=== PATIENT | female | born 1975 | race Caucasian/White ===

== ENCOUNTER 2022-08-17 06:15 | Emergency (ER) | payer SELFPAY ==
[~2022-08-17] VITALS: Ht 167.6 cm; Wt 62.5 kg
[2022-08-17 06:26] VITALS: BP 98/56
[2022-08-17] MEDS ORDERED: ACETAMINOPHEN 325MG TABLET PO PRN (06:45)
[2022-08-17 07:27] LABS: CLARITY URINE CLOUDY (CLEAR); COLOR URINE YELLOW (YELLOW); KETONES URINE TRACE (NEGATIVE); LEUKOCYTE ESTERASE URINE 3+ (NEGATIVE); NITRITE URINE NEGATIVE (NEGATIVE); OCCULT BLOOD URINE 2+ (NEGATIVE); PH URINE 6.5 (4.5-8.0); PROTEIN URINE 1+ (NEGATIVE); UROBILINOGEN URINE 0.2 E.U./dL (0.2-1.0)
[2022-08-17 08:00] LABS: *AMPHETAMINES SCREEN URINE NEGATIVE (NEGATIVE); *BARBITURATES SCREEN URINE NEGATIVE (NEGATIVE); *BENZODIAZEPINES SCREEN URINE NEGATIVE (NEGATIVE); *COCAINE SCREEN URINE NEGATIVE (NEGATIVE); CANNABINOID URINE SCREEN NEGATIVE (NEGATIVE); METHADONE URINE SCREEN NEGATIVE (NEGATIVE); OPIATES URINE SCREEN NEGATIVE (NEGATIVE); PHENCYCLIDINE URINE SCREEN NEGATIVE (NEGATIVE)
[2022-08-17 12:08] LABS: BASOPHILS % 0.1 % (0.0-2.0); EOSINOPHILS % 0.6 % (0.0-5.0); HEMATOCRIT. 34.4 % (36.0-48.0); HEMOGLOBIN. 11.4 g/dL (12.0-16.0); LYMPHOCYTES % 8.4 % (20.0-50.0); MEAN CORPUSCULAR HEMOGLOBIN 30.3 pg (28.0-32.0); MEAN CORPUSCULAR VOLUME 91.6 fL (81.0-99.0); MEAN PLATELET VOLUME 7.3 fl (7.4-10.4); NEUTROPHILS % 84.9 % (40.0-76.0); PLATELET 343 x1000/uL (130-400); RED BLOOD CELL COUNT 3.75 mill/uL (4.2-5.4); RED CELL DISTRIBUTION WIDTH 14.4 % (11.6-14.6)
[2022-08-17 12:18] LABS: CHLORIDE 106 mEq/L (98-107)
[2022-08-17 12:23] LABS: HCG SCREEN NEGATIVE
[2022-08-17] MEDS ORDERED: CEFTRIAXONE SODIUM 500 MG/VIAL IM ONE (14:30)
[2022-08-17] MEDS ORDERED: DOXY100C5 MT (14:31)
[2022-08-17] MEDS ORDERED: METR-167 MT (14:31)
== END 2022-08-17 15:04 | disposition home or self-care (01) ==
LOC: ER 06:15
DX: N73.9 Female pelvic inflammatory disease, unspecified (principal); Z98.890 Other specified postprocedural states
CPT/HCPCS: 36415; 76830; 76856; 80053; 80305; 81003; 83690; 84703; 85025; 87081; 87491; 87591; 96372; 99284; J0696

== ENCOUNTER 2022-08-21 04:35 | Emergency (ER) | payer SELFPAY ==
[~2022-08-21] VITALS: Ht 167.6 cm; Wt 62.3 kg
[~2022-08-21 04:35] MED LIST: DOXY100C5 MT; METR-167 MT
[2022-08-21 04:50] VITALS: BP 120/73
[2022-08-21] MEDS ORDERED: ACETAMINOPHEN WITH CODEINE 300/30MG TABLET PO STA (05:44)
[2022-08-21 06:27] LABS: BASOPHILS % 0.5 % (0.0-2.0); EOSINOPHILS % 2.2 % (0.0-5.0); HEMATOCRIT. 32.7 % (36.0-48.0); HEMOGLOBIN. 11.2 g/dL (12.0-16.0); LYMPHOCYTES % 24.7 % (20.0-50.0); MEAN CORPUSCULAR HEMOGLOBIN 30.8 pg (28.0-32.0); MEAN CORPUSCULAR VOLUME 90.1 fL (81.0-99.0); MEAN PLATELET VOLUME 6.8 fl (7.4-10.4); MONOCYTES % 8.4 % (2.0-8.0); NEUTROPHILS % 64.2 % (40.0-76.0); PLATELET 446 x1000/uL (130-400); RED BLOOD CELL COUNT 3.63 mill/uL (4.2-5.4); RED CELL DISTRIBUTION WIDTH 13.8 % (11.6-14.6)
[2022-08-21 06:33] LABS: CHLORIDE 104 mEq/L (98-107)
[2022-08-21 06:47] LABS: CLARITY URINE CLEAR (CLEAR); COLOR URINE YELLOW (YELLOW); KETONES URINE NEGATIVE (NEGATIVE); LEUKOCYTE ESTERASE URINE NEGATIVE (NEGATIVE); NITRITE URINE NEGATIVE (NEGATIVE); OCCULT BLOOD URINE 2+ (NEGATIVE); PH URINE 5.5 (4.5-8.0); PROTEIN URINE NEGATIVE (NEGATIVE); SPECIFIC GRAVITY URINE 1.015 (1.005-1.030); UROBILINOGEN URINE 0.2 E.U./dL (0.2-1.0)
[2022-08-21] MEDS ORDERED: TOPUD PO (07:04)
[2022-08-21] MEDS ORDERED: ONDA4TAB50 PO (07:04)
== END 2022-08-21 07:25 | disposition home or self-care (01) ==
LOC: ER 04:35
DX: R10.11 Right upper quadrant pain (principal); R30.0 Dysuria; D64.9 Anemia, unspecified
CPT/HCPCS: 36415; 76705; 80053; 81003; 81025; 85025; 99284

== ENCOUNTER 2023-06-13 11:27 | Emergency (ER) | payer MEDICAID ==
[~2023-06-13] VITALS: Ht 167.6 cm; Wt 63.5 kg
[~2023-06-13 11:27] MED LIST changes: +ONDA4TAB50 PO; +TOPUD PO
[2023-06-13 11:41] VITALS: BP 142/83; TEMP 98.4; O2SAT 98
[2023-06-13 11:45] VITALS: PULSE 87; RESP 20
[2023-06-13 12:29] LABS: BASOPHILS % 0.3 % (0.0-2.0); EOSINOPHILS % 1.1 % (0.0-5.0); HEMATOCRIT. 38.4 % (36.0-48.0); HEMOGLOBIN. 12.7 g/dL (12.0-16.0); LYMPHOCYTES % 34.6 % (20.0-50.0); MEAN CORPUSCULAR HGB CONC 32.9 g/dL (31.0-37.0); MEAN CORPUSCULAR VOLUME 91.3 fL (81.0-99.0); MEAN PLATELET VOLUME 7.6 fl (7.4-10.4); MONOCYTES % 7.2 % (2.0-8.0); NEUTROPHILS % 56.8 % (40.0-76.0); PLATELET 307 x1000/uL (130-400); RED BLOOD CELL COUNT 4.21 mill/uL (4.2-5.4); RED CELL DISTRIBUTION WIDTH 13.7 % (11.6-14.6); WHITE BLOOD COUNT 6.8 x1000/uL (4.5-11.0)
[2023-06-13 12:48] LABS: CHLORIDE 101 mEq/L (98-107); INDEX HEMOLYSI 1 (1-3); INDEX ICTERIC 1 (1-4); INDEX LIPEMIC 1 (1-3); SODIUM 134 mEq/L (136-145)
[2023-06-13 12:57] LABS: HCG SCREEN NEGATIVE
[2023-06-13 13:02] LABS: ALANINE AMINOTRANSFERASE 23 IU/L (13-61); ASPARTATE AMINOTRANSFERASE 17 IU/L (15-37); BILIRUBIN TOTAL 0.2 mg/dL (0.1-1.0); CALCIUM 8.6 mg/dL (8.5-10.1); CARBON DIOXIDE 28 mEq/L (21-32); CREATININE 0.7 mg/dL (0.6-1.3); GLUCOSE 135 mg/dL (70-105); NT PRO B-TYPE NATRIURETIC PEP 39 pg/mL (5-125); PROTEIN TOTAL 8.2 g/dL (6.0-8.3); TROPONIN I HIGH SENSITIVITY 4 ng/L (<54); UREA NITROGEN BLOOD 21 mg/dL (7-21)
[2023-06-13 16:00] LABS: CLARITY URINE CLEAR (CLEAR); COLOR URINE YELLOW (YELLOW); GLUCOSE URINE NEGATIVE (NEGATIVE); KETONES URINE NEGATIVE (NEGATIVE); LEUKOCYTE ESTERASE URINE NEGATIVE (NEGATIVE); NITRITE URINE NEGATIVE (NEGATIVE); OCCULT BLOOD URINE NEGATIVE (NEGATIVE); PROTEIN URINE NEGATIVE (NEGATIVE); SPECIFIC GRAVITY URINE 1.007 (1.005-1.030); UROBILINOGEN URINE 0.2 E.U./dL (0.2-1.0)
[2023-06-13] MEDS ORDERED: MECL-299 MT (16:41)
== END 2023-06-13 17:09 | disposition home or self-care (01) ==
LOC: ER 11:27
DX: R42 Dizziness and giddiness (principal); Z98.890 Other specified postprocedural states
CPT/HCPCS: 36415; 71045; 80053; 81003; 83880; 84484; 84703; 85025; 93005; 99285